=== PATIENT | male | born 1995 | race American Indian/Alaskan Native ===

== ENCOUNTER 2017-11-06 05:02 | Emergency (ER) | payer OTHER ==
[2017-11-06 05:06] VITALS: BP 145/96
[2017-11-06 06:26] LABS: Bacteria,Urine 1+ /HPF (Negative); Bilirubin,Urine NEG (Negative); Blood,Urine NEG (Negative); Color,Urine Yellow (Yellow); Mucus,Urine FEW /HPF; Protein,Urine <15 mg/dL mg/dL (Negative); Urobilinogen,Urine < 2.0 mg/dL (<2.0); WBC,Urine < 1.0 /HPF (0.0-6.0)
--- NOTE | 2017-11-06 06:27 | Ultrasound Report ---
FINAL REPORT EXAM: US TESTICULAR DOPPLER COMP HISTORY: Swollen left testicle TECHNIQUE: Routine sonographic evaluation was obtained of the scrotum including Doppler interrogation of both testicles. FINDINGS: On the right side the testicles normal in size contour blood flow and echotexture measuring 4.9 cm x 2.2 cm x 2.7 cm. The right epididymis is normal size and reveal several benign epididymal cysts measuring up to 4 mm in diameter. There is no evidence of right-sided hydrocele or varicocele. The left testicle is normal size contour, blood flow and echotexture measuring 4.6 cm x 2 cm x 3 cm. The left epididymis is normal size and reveal several benign-appearing epididymal cyst measuring up to 5 mm in diameter. There is a small amount of fluid adjacent to the left epididymal head. Lateral to the left testicle is a complex mass measuring 4.7 cm x 2 cm x 1.1 cm. IMPRESSION: No evidence of testicular neoplasia or torsion. Multiple bilateral small epididymal cysts. Minimal left-sided hydrocele. Complex mass lateral to the left testicle measuring 4.7 cm x 2 cm x 1.1 cm. This could represent a left inguinal hernia. Correlation with clinical exam needed.
--- NOTE | 2017-11-06 08:31 | Emergency Department Report ---
ED Male HPI - General Chief complaint: Urogenital-Male Stated complaint: SWOLLEN TESTICLE Time Seen by Provider: 11/06/17 08:06 Source: patient Mode of arrival: Ambulatory Limitations: No Limitations - History of Present Illness Initial comments: Patient is a 22-year-old gentleman who is presenting with left testicular discomfort. Patient states her approximate 5 PM yesterday he started noticing some swelling in this region. Patient states the pain is a 5 out of 10 and is aching. Patient denies any penile discharge dysuria or fevers chills nausea vomiting. Patient states is been no direct trauma to this area. denies: discharge, swelling, urinary retention, blood in urine, dysuria, fever, nausea/vomiting, incontinence - Related Data Previous Rx's Medication Instructions Recorded Last Taken Type Docusate Sodium [Colace] 100 mg PO BID #30 capsule 11/06/17 Unknown Rx Ibuprofen [Motrin] 800 mg PO Q8HR PRN #20 tablet 11/06/17 Unknown Rx Allergies Allergy/AdvReac Type Severity Reaction Status Date / Time No Known Allergies Allergy Unverified 11/06/17 05:23 ED Review of Systems ROS: Stated complaint: SWOLLEN TESTICLE Other details as noted in HPI Comment: All other systems reviewed and negative ED Past Medical Hx - Past Medical History Previous Medical History?: No - Surgical History Past Surgical History?: No - Social History Smoking Status: Never Smoker - Medications Home Medications: Home Medications Medication Instructions Recorded Confirmed Last Taken Type Docusate Sodium [Colace] 100 mg PO BID #30 capsule 11/06/17 Unknown Rx Ibuprofen [Motrin] 800 mg PO Q8HR PRN #20 tablet 11/06/17 Unknown Rx ED Physical Exam - General Limitations: No Limitations General appearance: alert, in no apparent distress - Head Head exam: Present: atraumatic, normocephalic - Eye Eye exam: Present: normal appearance - ENT ENT exam: Present: mucous membranes moist - Neck Neck exam: Present: normal inspection - Respiratory Respiratory exam: Present: normal lung sounds bilaterally. Absent: respiratory distress - Cardiovascular Cardiovascular Exam: Present: regular rate, normal rhythm. Absent: systolic murmur, diastolic murmur, rubs, gallop - GI/Abdominal GI/Abdominal exam: Present: soft, normal bowel sounds - Rectal Rectal exam: Present: deferred - Extremities Exam Extremities exam: Present: normal inspection - Back Exam Back exam: Present: normal inspection - Neurological Exam Neurological exam: Present: alert, oriented X3 - Psychiatric Psychiatric exam: Present: normal affect, normal mood - Skin Skin exam: Present: warm, dry, intact, normal color. Absent: rash ED Course Vital Signs 11/06/17 11/06/17 04:59 05:25 Temperature 98.1 F 98.1 F Pulse Rate 94 H 94 H Respiratory 20 20 Rate Blood Pressure 145/96 145/96 O2 Sat by Pulse 98 98 Oximetry ED Medical Decision Making - Radiology Data Patient: HARIKA MATOS MR#: [id number] : 1995 Acct:[id number] Age/Sex: 22 / M ADM Date: 11/06/17 Loc: ED Attending Dr: Ordering Physician: JONATHAN MAXWELL MD Date of Service: 11/06/17 Procedure(s): US testicular doppler comp Accession Number(s): [id number] cc: ED MD HANS FINAL REPORT EXAM: US TESTICULAR DOPPLER COMP HISTORY: Swollen left testicle TECHNIQUE: Routine sonographic evaluation was obtained of the scrotum including Doppler interrogation of both testicles. FINDINGS: On the right side the testicles normal in size contour blood flow and echotexture measuring 4.9 cm x 2.2 cm x 2.7 cm. The right epididymis is normal size and reveal several benign epididymal cysts measuring up to 4 mm in diameter. There is no evidence of right-sided hydrocele or varicocele. The left testicle is normal size contour, blood flow and echotexture measuring 4.6 cm x 2 cm x 3 cm. The left epididymis is normal size and reveal several benign-appearing epididymal cyst measuring up to 5 mm in diameter. There is a small amount of fluid adjacent to the left epididymal head. Lateral to the left testicle is a complex mass measuring 4.7 cm x 2 cm x 1.1 cm. IMPRESSION: No evidence of testicular neoplasia or torsion. Multiple bilateral small epididymal cysts. Minimal left-sided hydrocele. Complex mass lateral to the left testicle measuring 4.7 cm x 2 cm x 1.1 cm. This could represent a left inguinal hernia. Correlation with clinical exam needed. Transcribed By: RB Dictated By: BRANDIE PARK MD Electronically Authenticated By: BRANDIE PARK MD Signed Date/Time: 11/06/17621 - Medical Decision Making Patient does appear to have a small hernia on the left scrotum. Patient will be referred to general surgery and will be started on Motrin 800 and Colace Critical care attestation.: If time is entered above; I have spent that time in minutes in the direct care of this critically ill patient, excluding procedure time. ED Disposition Clinical Impression: Inguinal hernia Qualifiers: Obstruction and gangrene presence: without obstruction or gangrene Laterality: unilateral Recurrence: not specified as recurrent Qualified Code(s): K40.90 - Unilateral inguinal hernia, without obstruction or gangrene, not specified as recurrent Disposition: DC-01 TO HOME OR SELFCARE Is pt being admited?: No Does the pt Need Aspirin: No Condition: Stable Instructions: Inguinal Hernia (ED), Testicle Pain (ED) Prescriptions: Docusate Sodium [Colace] 100 mg PO BID #30 capsule Ibuprofen [Motrin] 800 mg PO Q8HR PRN #20 tablet PRN Reason: Pain Referrals: EMILIANO HOPKINS MD [Staff Physician] - 3-5 Days
== END 2017-11-06 08:39 | disposition home or self-care (01) ==
LOC: ED 05:02
DX: K40.90 Unilateral inguinal hernia, without obstruction or gangrene, not specified as recurrent (principal)
CPT/HCPCS: 81001; 93975; 99284

== ENCOUNTER 2017-11-20 07:58 | Day surgery (SDC) | payer OTHER ==
[~2017-11-20 07:58] MED LIST: ANCEF/STERILE WATER 2 GM/20 ML 2 GM/20 ML SYRINGE IV SCH; LACTATED RINGERS 1,000 ML IV SCH; VERSED IV NR
--- NOTE | 2017-11-20 09:39 | Anesthesia Day of Surgery ---
Anesthesia Day of Surgery - Day of Surgery Patient Examined: Yes Patient H&P Reviewed: Yes Patient is NPO: Yes Beta Blockers: No
--- NOTE | 2017-11-20 09:39 | Anesthesia Consultation ---
Anesthesia Consult and Med Hx - Airway Anesthetic Teeth Evaluation: Good ROM Head & Neck: Adequate Mental/Hyoid Distance: Adequate Mallampati Class: Class II Intubation Access Assessment: Probably Good - Pulmonary Exam CTA: Yes - Cardiac Exam Cardiac Exam: No Murmur - Pre-Operative Health Status ASA Pre-Surgery Classification: ASA1 Proposed Anesthetic Plan: General - Pulmonary Hx Smoking: No Hx Asthma: No Hx Respiratory Symptoms: No SOB: No COPD: No Home Oxygen Therapy: No Hx Pneumonia: No Hx Sleep Apnea: No - Cardiovascular System Hx Hypertension: No Hx Coronary Artery Disease: No Hx Heart Attack/AMI: No Hx Angina: No Hx Percutaneous Transluminal Coronary Angioplasty (PTCA): No Hx Cardia Arrhythmia: No Hx Pacemaker: No Hx Internal Defibrillator: No Hx Valvular Heart Disease: No Hx Heart Murmur: No Hx Peripheral Vascular Disease: No - Central Nervous System Hx Neuromuscular Disorder: No Hx Seizures: No CVA: No Hx Back Pain: No Hx Psychiatric Problems: No - Gastrointestinal Hx Ulcer: No Hx Gastroesophageal Reflux Disease: No - Endocrine Hx Renal Disease: No Hx End Stage Renal Disease: No Hx Cirrhosis: No Hx Liver Disease: No Hx Insulin Dependent Diabetes: No Hx Non-Insulin Dependent Diabetes: No Hx Thyroid Disease: No Hx Hypothyroidism: No Hx Hyperthyroidism: No - Hematic Hx Anemia: No Hx Sickle Cell Disease: No - Other Systems Hx Alcohol Use: No Hx Substance Use: No Hx Cancer: No Hx Obesity: No
[2017-11-20] MEDS ORDERED: MARCAINE 0.5% INFILTRATI ONE (09:58)
[2017-11-20] MEDS ORDERED: ADRENALIN SUB-Q ONE (09:58)
[2017-11-20] MEDS ORDERED: NACL 0.9% IR ONE (09:58)
[2017-11-20] MEDS ORDERED: QUELICIN ONE (09:59)
[2017-11-20] MEDS ORDERED: DECADRON ONE (09:59)
[2017-11-20] MEDS ORDERED: ZEMURON IV ONE (09:59)
[2017-11-20] MEDS ORDERED: SUBLIMAZE ONE ×2 (09:59→11:06)
[2017-11-20] MEDS ORDERED: ZOFRAN ONE (09:59)
[2017-11-20] MEDS ORDERED: DIPRIVAN 10 MG/ML IV ONE (09:59)
[2017-11-20] MEDS ORDERED: XYLOCAINE MPF 2% ONE (10:00)
[2017-11-20] MEDS ORDERED: ceFAZolin 2 GM in NACL 0.9% 100 ML IV ONE (10:00)
[2017-11-20] MEDS ORDERED: ADRENALIN ONE (11:28)
[2017-11-20] MEDS ORDERED: NEOSTIGMINE ONE (11:46)
[2017-11-20] MEDS ORDERED: ROBINUL ONE (11:46)
--- NOTE | 2017-11-20 11:57 | Discharge Summary ---
Short Stay Discharge Plan Activity: other (observe x 4 hrs then october d/c if stable and able to void. full liq today. solid diet in am. ice pack L groin x 6hrs scrotal support x 3 days. no lifting over 5 lbs x 3 wks) Weight Bearing Status: Non-Weight Bearing Diet: other Wound: keep clean and dry (x 5 days) Additional Instructions: aleve I po q 6-8 hrs for breakthrough pain Follow up with: EMILIANO HOPKINS MD [Staff Physician] - 7 Days
--- NOTE | 2017-11-20 12:21 | Operative Report ---
PREOPERATIVE DIAGNOSIS: Left inguinal hernia. POSTOPERATIVE DIAGNOSIS: Left inguinal hernia. PROCEDURE: 1. Attempted laparoscopic left inguinal hernia repair. 2. Conversion to open left inguinal hernia repair with mesh. SURGEON: Placido Zuñiga MD ANESTHESIA: General. ESTIMATED BLOOD LOSS: Minimal. DRAINS: No drains. DESCRIPTION OF PROCEDURE: The patient was taken to the operating room, prepped and draped in usual sterile fashion. Infraumbilical incision was made and subcutaneous dissected down to the fascia. The area was deep and good exposure was not able to be adequately obtained. Also, the angle to attempt to put in the dissecting catheter was too acute. It was thus decided to close the fascia at this point and proceed with open left inguinal hernia repair. Incision was made using his landmarks at anterior superior iliac spine and pubic tubercle. Incision was carried down to external oblique fascia. External oblique fascia was transected down to the external inguinal ring. Inguinal cord was then isolated with a Erwin drain at the level of the pubic tubercle. Dissection along the cord revealed no indirect sac. A direct hernia was identified. A keyhole Marlex mesh was then used to reinforce the inguinal canal floor. The mesh was tacked inferiorly to Jose's ligament. Medially, the mesh was secured to the transversalis fascia with a #1 Nurolon suture. Laterally, the mesh was secured to the iliopubic tract. The area was then irrigated copiously and dried. Checked for hemostasis and noted to be dry. The cord was then on laid over the mesh. All cord structures were intact including the ilioinguinal nerve. The external oblique fascia was closed over the cord with a running 3-0 Vicryl suture. Subcutaneous tissues irrigated. Skin closed with arely. A 0.5% Marcaine with epinephrine was infiltrated over the fascia, subcutaneous, and skin. Ilioinguinal nerve block was also performed. The patient tolerated the procedure well and left OR in stable condition. JOB# [id number] TERESITA/CHAY
[2017-11-20] MEDS ORDERED: DILAUDID ONE (12:40)
[2017-11-20] MEDS: DILAUDID IV PRN ×2 (12:40→12:50)
[2017-11-20] MEDS ORDERED: ZOFRAN IV PRN (12:44)
[2017-11-20] MEDS ORDERED: NORCO 5/325 PO SCH (14:48)
--- NOTE | 2017-11-20 16:08 | Post Anesthesia Evaluation ---
- Post Anesthesia Evaluation Patient Participated: Yes Airway Patent: Yes Stable Respiratory Function: Yes Nausea/Vomiting: No Temp > 96.8F: Yes Pain Manageable: Yes Adequeate Hydration: Yes Anesthesia Complications: No
[2017-11-20 20:15] VITALS: BP 125/80
== END 2017-11-20 17:05 | disposition home or self-care (01) ==
LOC: OR 07:58
PROVIDERS: ATTEND Surgery
DX: K40.90 Unilateral inguinal hernia, without obstruction or gangrene, not specified as recurrent (principal)
CPT/HCPCS: 49505; C1726; C1781; J0171; J0330; J0690; J1100; J1170; J2250; J2405; J2704; J2710; J3010; J7120